=== PATIENT | male | born 2000 | race Caucasian/White ===

== ENCOUNTER 2022-05-01 03:07 | Emergency (ER) | payer OTHER ==
[~2022-05-01] VITALS: Ht 182.9 cm; Wt 113.4 kg
[2022-05-01] MEDS ORDERED: SULTRIDS PO (03:28)
== END 2022-05-01 04:12 | disposition home or self-care (01) ==
LOC: ER 03:07
DX: L03.317 Cellulitis of buttock (principal)
CPT/HCPCS: 99283; A9270